=== PATIENT | female | born 1985 | race American Indian/Alaskan Native ===

== ENCOUNTER 2018-08-04 23:31 | Emergency (ER) | payer SELFPAY ==
[2018-08-05 00:27] VITALS: BP 123/78
--- NOTE | 2018-08-05 02:14 | XRay Report ---
FINAL REPORT EXAM: XR Right Foot CLINICAL INDICATIONS: PAIN/SWELLING FINDINGS: AP and lateral views of the right foot were acquired and demonstrate no fracture of the right foot. No foreign body is seen. There is no plantar calcaneal spur. IMPRESSION: NO FRACTURE IS SEEN IN THE RIGHT FOOT
--- NOTE | 2018-08-05 02:15 | XRay Report ---
FINAL REPORT EXAM: XR Right Ankle CLINICAL INDICATIONS: PAIN/SWELLING FINDINGS: AP and lateral views of the right ankle were acquired and demonstrate no fracture or malalignment of the right ankle. There is medial and lateral ankle soft tissue swelling. IMPRESSION: NO FRACTURE IS SEEN IN THE RIGHT ANKLE
[2018-08-05] MEDS ORDERED: MOTRIN PO ONE ×2 (04:58→05:00)
--- NOTE | 2018-08-05 05:42 | Emergency Department Report ---
ED Lower Extremity HPI - General Chief Complaint: Extremity Injury, Lower Stated Complaint: ANKLE PAIN Time Seen by Provider: 08/05/18 05:30 Source: patient Mode of arrival: Ambulatory Limitations: No Limitations - History of Present Illness Initial Comments: 32-year-old -[place] female comes in stating that her right ankle is swollen and painful. Patient reports that she was walking and her daughter out of the doctor's office about 12:30 on Thursday evening in her foot stepped into a hole that did not have a cover on it. Patient reports that she twisted it and fell. Patient now complains of swelling and pain. She has a past medical history of asthma and takes no medications on a daily basis has no known drug allergies. She she is able to bear weight but with pain. MD Complaint: ankle injury -: days(s) (1) Time: 12:30 Injury: Ankle: Right Type of Injury: inversion (swelling and painful) Place: street/outdoors (comment from her daughter's doctor's office [facility]) Severity: severe Severity scale (0 -10): 10 Improves With: nothing Worsens With: weight bearing, movement, palpation Context: fall - Related Data Previous Rx's Medication Instructions Recorded Last Taken Type Albuterol Sulfate [Ventolin HFA] 2 puff IH Q4H PRN #1 hfa.aer.ad 10/31/14 Unknown Rx Azithromycin [Zithromax Z-JESSIE] 250 mg PO DAILY #6 tablet 10/31/14 Unknown Rx Promethazine Dm (Nf) [Phenergan Dm 5 ml PO Q6H PRN #120 ml 10/31/14 Unknown Rx 6.25/15 mg 5 ml] predniSONE [Deltasone] 20 mg PO TID #15 tab 10/31/14 Unknown Rx Ibuprofen [Motrin 600 MG tab] 600 mg PO Q8H PRN #30 tablet 08/05/18 Unknown Rx Allergies Allergy/AdvReac Type Severity Reaction Status Date / Time No Known Allergies Allergy Verified 08/05/18 05:06 ED Review of Systems ROS: Stated complaint: ANKLE PAIN Other details as noted in HPI Comment: All other systems reviewed and negative Musculoskeletal: joint swelling, arthralgia ED Past Medical Hx - Past Medical History Previous Medical History?: Yes Hx Asthma: Yes - Surgical History Past Surgical History?: Yes Additional Surgical History: hemmorhoids - Social History Smoking Status: Current Every Day Smoker Substance Use Type: Alcohol, Marijuana - Medications Home Medications: Home Medications Medication Instructions Recorded Confirmed Last Taken Type Albuterol Sulfate [Ventolin HFA] 2 puff IH Q4H PRN #1 hfa.aer.ad 10/31/14 Unknown Rx Azithromycin [Zithromax Z-JESSIE] 250 mg PO DAILY #6 tablet 10/31/14 Unknown Rx Promethazine Dm (Nf) [Phenergan Dm 5 ml PO Q6H PRN #120 ml 10/31/14 Unknown Rx 6.25/15 mg 5 ml] predniSONE [Deltasone] 20 mg PO TID #15 tab 10/31/14 Unknown Rx Ibuprofen [Motrin 600 MG tab] 600 mg PO Q8H PRN #30 tablet 08/05/18 Unknown Rx ED Physical Exam - General Limitations: No Limitations General appearance: alert, in no apparent distress - Head Head exam: Present: atraumatic, normocephalic - ENT ENT exam: Present: mucous membranes moist - Respiratory Respiratory exam: Present: normal lung sounds bilaterally. Absent: respiratory distress - Cardiovascular Cardiovascular Exam: Present: regular rate, normal rhythm. Absent: systolic murmur, diastolic murmur, rubs, gallop - Expanded Lower Extremity Exam Right Hip exam: Present: normal inspection, full ROM Upper Leg exam: Present: normal inspection, full ROM Knee exam: Present: normal inspection, full ROM Lower Leg exam: Present: normal inspection, full ROM Ankle exam: Present: normal inspection, full ROM (painful to move), tenderness, swelling Foot/Toe exam: Absent: tenderness, swelling, erythema Neuro vascular tendon exam: Present: no vascular compromise. Absent: pulse deficit, abnormal cap refill Gait: Positive: observed and limited by pain - Back Exam Back exam: Present: normal inspection - Neurological Exam Neurological exam: Present: alert, oriented X3 - Psychiatric Psychiatric exam: Present: normal affect, normal mood - Skin Skin exam: Present: warm, dry, intact, normal color. Absent: rash ED Course Vital Signs 08/05/18 00:09 Temperature 98.8 F Pulse Rate 72 Respiratory 16 Rate Blood Pressure 123/78 O2 Sat by Pulse 100 Oximetry ED Lower Extremity MDM - Radiology Data Radiology results: report reviewed FINAL REPORT EXAM: XR Right Ankle CLINICAL INDICATIONS: PAIN/SWELLING FINDINGS: AP and lateral views of the right ankle were acquired and demonstrate no fracture or malalignment of the right ankle. There is medial and lateral ankle soft tissue swelling. IMPRESSION: NO FRACTURE IS SEEN IN THE RIGHT ANKLE Transcribed By: TODD Dictated By: GRAEME DARNELL MD Electronically Authenticated By: GRAEME DARNELL MD Signed Date/Time: 08/05/18213 DD/ 3 TD/TT: 08/05/18213 FINAL REPORT EXAM: XR Right Foot CLINICAL INDICATIONS: PAIN/SWELLING FINDINGS: AP and lateral views of the right foot were acquired and demonstrate no fracture of the right foot. No foreign body is seen. There is no plantar calcaneal spur. IMPRESSION: NO FRACTURE IS SEEN IN THE RIGHT FOOT Transcribed By: TODD Dictated By: GRAEME DARNELL MD Electronically Authenticated By: GRAEME DARNELL MD Signed Date/Time: 08/05/18212 DD/ 2 TD/TT: 08/05/18212 - Medical Decision Making Patient has been evaluated by this provider fast track. Ibuprofen given for pain management. X-rays was ordered shows no acute fracture Patient's diagnosis with right ankle sprain Terell bandage and Aircast ordered Discussed the patient to take pain medication as prescribed follow up with her primary care provider if symptoms persist or gets worse. Verbalized understanding Critical care attestation.: If time is entered above; I have spent that time in minutes in the direct care of this critically ill patient, excluding procedure time. ED Disposition Clinical Impression: Moderate right ankle sprain Qualifiers: Encounter type: initial encounter Qualified Code(s): S93.401A - Sprain of unspecified ligament of right ankle, initial encounter Disposition: - TO HOME OR SELFCARE Is pt being admited?: No Does the pt Need Aspirin: No Condition: Stable Instructions: Ankle Sprain (ED), Ankle Stirrup Splint (ED), Ankle Exercises ( GEN) Additional Instructions: Please take pain medication as needed. Please eat prior to taking pain medication. If her symptoms persist or gets worse with follow-up with her primary care provider. Prescriptions: Ibuprofen [Motrin 600 MG tab] 600 mg PO Q8H PRN #30 tablet PRN Reason: Pain Referrals: PRIMARY CARE, [Primary Care Provider] - 3-5 Days Forms: Work/School Release Form(ED)
== END 2018-08-05 06:01 | disposition home or self-care (01) ==
LOC: ED 23:31
DX: S93.401A Sprain of unspecified ligament of right ankle, initial encounter (principal); J45.909 Unspecified asthma, uncomplicated; K64.9 Unspecified hemorrhoids; F17.200 Nicotine dependence, unspecified, uncomplicated; F12.10 Cannabis abuse, uncomplicated; X50.1XXA Overexertion from prolonged static or awkward postures, initial encounter; Y93.89 Activity, other specified; Y92.410 Unspecified street and highway as the place of occurrence of the external cause; Y99.8 Other external cause status
CPT/HCPCS: 29540; 99283